=== PATIENT | female | born 1995 | race Caucasian/White ===

== ENCOUNTER 2024-11-17 19:16 | Emergency (ER) | payer OTHER, SELFPAY ==
[2024-11-17 19:19] VITALS: BP 134/83
[2024-11-17 19:36] VITALS: BMI 37.0
--- NOTE | 2024-11-17 19:37 | EDRN ---
Pt found out she is last week and this morning she started spotting. Couple hours later she started bleeding more 'not heavy enough to fill anything but it was consistent.' Blood described as pale red. No clots. Intermittent cramping.
No pad needed, mostly with wiping. [id number]. No pain, fever/chills, n/v.
[2024-11-17 19:39] LABS: % Basophils 0.8 % (0-2); % Eosinophils 4.7 % (0-6); % Immature Granulocytes 0.1 % (0-0.5); % Lymphocytes 34.5 % (20.5-51.1); % Monocytes 8.2 % (1.7-9.3); % Neutrophils 51.7 % (42.2-75.2); Absolute Basophils 0.1 10^3/uL (0-0.2); Absolute Eosinophils 0.3 10^3/uL (0-0.7); Absolute Lymphocytes 2.5 10^3/uL (1.2-3.4); Absolute Monocytes 0.6 10^3/uL (0.1-0.6); Absolute Neutrophils 3.7 10^3/uL (1.4-6.5); Hematocrit 39.9 % (37.0-47.0); Hemoglobin 13.1 g/dL (12.0-16.0); Mean Corp Hgb Conc. 32.8 g/dL (33.0-37.0); Mean Corpuscular Hgb 29.8 pg (27.0-31.0); Mean Corpuscular Volume 90.9 fL (81.0-99.0); Mean Platelet Volume 9.2 fL (7.4-10.4); Nucleated Red Blood Cells % 0 %; Platelet Count 230 10^3/uL (130-400); Red Blood Cell Count 4.39 10^6/uL (4.20-5.40); Red Cell Dist. Width 13.3 % (11.5-14.5); White Blood Cell Count 7.2 10^3/uL (4.8-10.8)
[2024-11-17 19:59] LABS: ALT (SGPT) 12 U/L (0-35); AST (SGOT) 13 U/L (14-36); Albumin 4.3 g/dl (3.5-5.0); Alkaline Phosphatase 68 U/L (38-126); Blood Urea Nitrogen 13 mg/dl (7-17); Calcium 10.5 mg/dl (8.4-10.2); Carbon Dioxide 27 mmol/L (22-30); Chloride 109 mmol/L (98-107); Estimated Creatinine Clearance 122 ml/min; Glucose 97 mg/dl (70-99); Sodium 142 mmol/L (135-145); Total Bilirubin 0.3 mg/dl (0.2-1.3); Total Protein 6.9 g/dl (6.3-8.2); eGFR > 60.00
[2024-11-17 20:15] LABS: Beta HCG Quantitative < 2.39 mIU/ml
--- NOTE | 2024-11-17 20:16 | ED.GENMED ---
History of Present Illness
<Bekah Lind NP - Last Filed: 11/17/24 22:38>
General
Chief Complaint: Problems
Source: patient
Exam Limitations: none
Time Seen by Provider: 11/17/24 19:55
Nursing documentation reviewed up to this point in time: agreed with
History of Present Illness
History of Present Illness:
Patient to ED with complaint of light vaginal bleeding. Symptoms started this AM. SHe reports pos test last week. States she took 5 total, all pos. Today noted bleeding this AM. reports bleeding is light. No associated abdominal or
pelvic pain. Denies passing clots. SHe is unsure exact date of LMP. Reports it was in August. SHe is currently and period is infrequent. [id number]
Past History
<Bekah Lind NP - Last Filed: 11/17/24 22:38>
Past History
ED Past Medical History: None
Review of Systems
<Bekah Lind NP - Last Filed: 11/17/24 22:38>
Review of Systems
Allergies reviewed?: Yes
All Other Systems: ROS reviewed and negative except as documented in HPI and ROS
Constitutional: Reports no symptoms
EENT: Reports no symptoms
Respiratory: Reports no symptoms
Cardiac: Reports no symptoms
ABD/GI: Reports no symptoms
: Reports other (light vaginal bleeding)
Musculoskeletal: Reports no symptoms
Skin: Reports no symptoms
Neurological: Reports no symptoms
Psychiatric: Reports no symptoms
Phy Exam
<Bekah Lind NP - Last Filed: 11/17/24 22:38>
General Physical Exam
General Presentation: well appearing and no apparent distress
General age: appears stated age
General Habitus: normal
General Mental: alert
Musculoskeletal Exam
Musculoskeletal Exam: full ROM
Skin Exam
Skin Exam: normal color
Psychiatric Exam
Psychiatric Exam: normal mood/affect
Course
<Bekah Lind STOGY ROLLER - Last Filed: 11/17/24 22:38>
Orders/Labs/Results
Orders:
Orders
11/17/24 19:26
Type+Screen Urgent
Beta HCG Quantitative Urgent
Is this a screen?: No
Complete Blood Count/With Diff Urgent
Comprehensive Metabolic Panel Urgent
Abnormal Lab Results
11/17/24
19:26
MCHC 32.8 L g/dL
(33.0-37.0)
Chloride 109 H mmol/L
(98-107)
Calcium 10.5 H mg/dl
(8.4-10.2)
AST 13 L U/L
(14-36)
11/17/24 19:26
11/17/24 19:26
Vital Signs
Initial and Last Documented VS:
Initial Vital Signs
Temp Pulse Resp BP Pulse Ox
98.1 F 99 20 134/83 100
11/17/24 19:19 11/17/24 19:19 11/17/24 19:19 11/17/24 19:19 11/17/24 19:19
Last Documented Vital Signs
Temp Pulse Resp BP Pulse Ox
98.1 F 95 14 128/78 98
11/17/24 19:19 11/17/24 20:53 11/17/24 20:53 11/17/24 20:53 11/17/24 20:53
Information
Weeks gestation: N/A
Location: N/A
<Russell Shannon DO - Last Filed: 11/17/24 20:52>
Orders/Labs/Results
Orders:
Orders
11/17/24 19:26
Type+Screen Urgent
Beta HCG Quantitative Urgent
Is this a screen?: No
Complete Blood Count/With Diff Urgent
Comprehensive Metabolic Panel Urgent
Abnormal Lab Results
11/17/24
19:26
MCHC 32.8 L g/dL
(33.0-37.0)
Chloride 109 H mmol/L
(98-107)
Calcium 10.5 H mg/dl
(8.4-10.2)
AST 13 L U/L
(14-36)
11/17/24 19:26
11/17/24 19:26
Vital Signs
Initial and Last Documented VS:
Initial Vital Signs
Temp Pulse Resp BP Pulse Ox
98.1 F 99 20 134/83 100
11/17/24 19:19 11/17/24 19:19 11/17/24 19:19 11/17/24 19:19 11/17/24 19:19
Last Documented Vital Signs
Temp Pulse Resp BP Pulse Ox
98.1 F 95 14 128/78 98
11/17/24 19:19 11/17/24 20:53 11/17/24 20:53 11/17/24 20:53 11/17/24 20:53
<Russell Shannon, DO - Last Filed: 11/17/24 20:52>
MDM/Problems Addressed
Differential Diagnosis Includes:
Miscarriage, menstrual bleeding
MDM/Problems Addressed:
29-year-old female with vaginal bleeding, with recent positive test at home. Possible miscarriage. Do not suspect ectopic . Stable for discharge. Patient has follow-up with [facility] on Monday.
<Russell Shannon, DO - Last Filed: 11/17/24 20:52>
*Pulse Oximetry
Patient hypoxic: no (100% on room air)
*Critical Care Note
Total Time (30-74mins, 75-104mins- exclusive of procedures): Not Applicable
Data Reviewed
Further Testing Considered But Not Given:
Ultrasound not indicated
<Russell Shannon, - Last Filed: 11/17/24 20:52>
Patient Management
Social determinants of health affecting care: Living situation and Strong social support
Escalation/DeEscalation of care consider admission/obs:
Admit not indicated
<Bekah Lind STOGY ROLLER - Last Filed: 11/17/24 22:38>
Update Note
Update Note:
Patient to ED for vaginal bleeding. States she had a total of 5 positive home tests last week. Plan was to review her serum HCG and send for US. Serum HCG <2.39 indicating no . THis was discussed wiht her. SHe became upset
because she had the 5 home tests test positive. Requested to speak with physician. Dr. Shannon in to see patient, discuss findings, offer plan, and discharged her home. Pelvic exam not completed by me as she requested to be seen by a
physician prior to me completing her exa,
ED Attending Note
<Bekah Lind STOGY ROLLER - Last Filed: 11/17/24 22:38>
-
Portions of this chart may have been created with voice recognition software.� Occasional wrong word or��sound alike� substitutions may have occurred due to the inherent limitations of voice recognition software.
<Russell Shannon, - Last Filed: 11/17/24 20:52>
ED Attending Note
Patient seen and examined by attending physician: Yes
ED Attending Note:
I have reviewed and agree with history and treatment plan by Bekah iLnd. My exam reveals 29-year-old female in no acute distress. Menstrual cycle versus miscarriage. Stable for discharge.
Discharge Plan
Departure
Patient Disposition: Home (Routine Discharge)
Date of Disposition: 11/17/24
Time of Disposition: 20:48
Patient with high blood pressure during this ER visit?: Yes
Condition: Good
Discharge Problem:
Vaginal bleeding
Instructions: BLOOD PRESSURE
Prescriptions:
No Action
No Current Medications
0
Referrals:
UNKNOWN - PT DOES,NOT KNOW [Family Provider]
Activity Restrictions/Additional Instructions:
Your test was negative in the emergency department. It is possible that you had a miscarriage. There is no further testing to be completed for this. Follow-up with your [facility] physician as scheduled this week. Return for any concerns.
Interventions
Interventions:
*Risk Screen - Suicide Last Done: 11/17/24 19:19
*General Assessment Last Done: 11/17/24 19:37
*Neglect/Abuse Screening Last Done: 11/17/24 19:19
*ED- Fall Risk Assessment Last Done: 11/17/24 19:37
*Nursing Disposition Last Done: 11/17/24 20:56
ED-Female Genitourinary Assessment Last Done: 11/17/24 19:46
Discharge Date and Time
Discharge Date/Time: 11/17/24 20:56
Print Language: BENINESE
[2024-11-17 20:53] VITALS: BP 128/78
== END 2024-11-17 20:56 | disposition home or self-care (01) ==
LOC: EMR 19:16
PROVIDERS: EMERGENCY PHYSICIAN Emergency Medicine
DX: N93.9 Abnormal uterine and vaginal bleeding, unspecified (principal); R03.0 Elevated blood-pressure reading, without diagnosis of hypertension
CPT/HCPCS: 99283; 80053; 84702; 85025; 86850; 86900; 86901